=== PATIENT | male | born 1990 | race Caucasian/White ===

== ENCOUNTER 2017-04-15 18:03 | Emergency (ER) | payer MEDICAID, OTHER ==
[2017-04-15] MEDS ORDERED: DIPHTH,PERTUSS(ACELL),TET VAC 0.5 ML VIAL IM ONE ×2 (19:29→19:34)
[2017-04-15] MEDS ORDERED: KETOROLAC TROMETHAMINE 60 MG/2 ML VIAL IM ONE ×2 (19:29→19:33)
--- NOTE | 2017-04-15 19:59 | ERNOTE ---
Animal Bite ER Date of Service: 04/15/17 Presenting Symptoms: bitten Time Seen by Provider: 04/15/17 19:16 Source: patient Exam Limitations: no limitations Immunizations: IMMUNIZATION HX Immunizations Up to Date Yes History of Influenza Vaccine No Hx Pneumococcal Vaccination No Allergies/Adverse Reactions: Allergies venom-honey bee [bee venom (honey bee)] Allergy (Verified 04/15/17 19:07) Home Medications: HOME MEDICATIONS Ibuprofen [Motrin] 800 mg PO TID PRN #60 tab 07/05/16 [Last Taken Unknown] Amox Tr/Potassium Clavulanate [Augmentin 875-125 Tablet] 875 mg PO Q12H #20 tab 04/15/17 [Last Taken Unknown] Amoxicillin Trihydrate [Amoxil] 500 mg PO TID 04/15/17 [Last Taken Unknown] Narrative: Pt. comes in with c/o R hand and L arm bites by his step father's dog. Dog is not up to date on shots and pt. is not up to date on tetanus vaccine. Pt. denies any numbness, tingling, SOB, CP, NVD, fever, recent illness. Pt. states tath pressure alleviated bleeding. Review of Systems - Review of Systems Constitutional: Present: no symptoms reported. Absent: recent illness, fever, chills, weakness, fatigue, malaise EYE: Present: no symptoms reported ENT: Present: no symptoms reported Respiratory: Present: no symptoms reported. Absent: shortness of breath, cough , wheezing Cardiology: Present: no symptoms reported. Absent: chest pain, palpitations, edema Musculoskeletal: Present: no symptoms reported, muscle pain - L arm. Absent: back pain, joint pain Skin: Present: other - bite wounds to L forearm and R volar hand Neurological: Present: no symptoms reported. Absent: headache, dizziness/light- headedness, numbness, tingling - Patient's Past Medical History Patient History - Medical: No pertinent hx Patient History - Cardiac/Respiratory: No pertinent hx Patient History - Cancer: No Hx of Cancer Patient History - Surgical Procedures: No surgical history Patient History - Other: None - Social History Living Situations: home Abuse History: No History of abuse Psych History: No pertinent hx Smoking Status: Current every day smoker Alcohol Use: none Drug Use: none - Immunizations Immunizations Up to Date: Yes Hx Pneumococcal Vaccination: No History of Influenza Vaccine: No Physical Exam - Physical Exam General Appearance: Present: wd/wn, alert, no apparent distress Head Exam: Present: normal inspection, no evidence of injury Eye Exam: Normal inspection: bilateral, PERRL: bilateral, EOMI: bilateral Ears, Nose, Throat: Present: normal ENT inspection, normal pharynx Neck: Present: normal inspection, nontender. Absent: lymphadenopathy (R), lymphadenopathy (L) Respiratory: Present: no respiratory distress, normal breath sounds, no accessory muscle use, chest nontender, lungs clear Cardiovascular/Chest: Present: regular rate, rhythm, no murmur, normal peripheral pulses Back Exam: Present: normal inspection, normal range of motion, no CVA tenderness , no vertebral tenderness Extremity Exam: Present: normal range of motion, joint swelling - R hand, extremity edema - L forearm around puncture wound Neurological Exam: Present: alert, oriented, normal mood/affect, no motor/ sensory deficits, lay out helper II-XII nml as tested, normal cerebellar test Skin Exam: Present: other - laceration of R hand open small area 0.1 x 0.5cm and L forearm 0.2 x 0.2 puncture wound ED Progress - Date and Time Seen: Date and Time: 04/15/17 21:02 Police notified and will get vaccine records on dog and in mean time will monitor dog for next ten days to monitor for signs of rabies. Because of this the recommendation is not to give prophylactic rabies vaccine or IGG at this time. - Vital Signs Patient's Vital Signs:: I have reviewed the patient's vital signs. Vital Signs: Vital Signs 04/15/17 19:04 Temperature 37.1 C Pulse Rate 99 Respiratory 18 Rate Blood Pressure 135/71 O2 Sat by Pulse 99 Oximetry - X-Ray X-Ray #1 X-Ray: hand Interpretation: Reviewed by me X-ray Comments: no obvious acute ossious abnormality X-Ray #2 X-Ray: forearm Interpretation: Reviewed by me X-ray Comments: no obvious acute ossious abnormality - Progress/Reassessment Chief Complaint: Animal Bite Procedures Right Volar Hand Anesthesia: 1% Lidocaine I & D Prep: betadine prep, sterile drapes applied, sterile dressing applied Wound's Depth/Shape: into subcutaneous, irregular Wound Explored: clean, to base Wound Intervention: irrigated w/saline, debrided minimal, margins revised Distal NVT: neuro/vasc intact, no tendon injury Wound Repaired With: sutures Suture Size/Type: 6-0 Number of Sutures: 2 Layer Closure: Simple Wound Dressing: sterile dressing applied Complications: Pt kacey procedure well Comment: closed wound loosely as to allow drainage of contaminated material and prevent infection. Departure Clinical Impression: Dog bite of hand Qualifiers: Encounter type: initial encounter Laterality: right Qualified Code(s): S61.451A - Open bite of right hand, initial encounter; W54.0XXA - Bitten by dog , initial encounter Dog bite of left arm Qualifiers: Encounter type: initial encounter Qualified Code(s): S41.152A - Open bite of left upper arm, initial encounter; W54.0XXA - Bitten by dog, initial encounter - Departure Disposition: Home self-care Condition: Good Instructions: Animal Bite Additional Instructions: Please follow up with ortho later this week to discuss further testing of tendons. Referrals: Reza Blackmon MD [Primary Care Provider] - Doron Velasco MD [Staff Physician] - Prescriptions: Amox Tr/Potassium Clavulanate [Augmentin 875-125 Tablet] 875 mg PO Q12H #20 tab
[2017-04-15] MEDS ORDERED: AMOX TR/POTASSIUM CLAVULANATE 875 MG TABLET PO ONE (21:01)
[2017-04-15] MEDS ORDERED: AMOX TR/POTASSIUM CLAVULANATE 875 MG TABLET ONE (21:12)
[2017-04-15 23:28] VITALS: BP 132/78
== END 2017-04-15 21:35 | disposition home or self-care (01) ==
LOC: ER 18:03
PROC: 0JQJ0ZZ Repair Right Hand Subcutaneous Tissue and Fascia, Open Approach (ICD-10-PCS; principal; 2017-04-15)
DX: S61.451A Open bite of right hand, initial encounter (principal); S41.152A Open bite of left upper arm, initial encounter; F17.200 Nicotine dependence, unspecified, uncomplicated; W54.0XXA Bitten by dog, initial encounter; Z23 Encounter for immunization